=== PATIENT | male | born 1995 | race Caucasian/White ===

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

== ENCOUNTER 2017-07-21 19:57 | Emergency (ER) | payer OTHER ==
[~2017-07-21] VITALS: Ht 180.3 cm; Wt 79.4 kg
[2017-07-21 20:05] VITALS: BP_SYST 121
[2017-07-21] MEDS ORDERED: KETOROLAC TROMETHAMINE 60 MG/2 ML VIAL IM ONE (20:45)
[2017-07-21] MEDS ORDERED: MORPHINE 4 MG/ML INJ. SYRINGE IM ONE (21:30)
[2017-07-21 22:24] VITALS: BP_SYST 127
== END 2017-07-21 22:24 | disposition home or self-care (01) ==
LOC: SED 19:57
DX: S22.32XA Fracture of one rib, left side, initial encounter for closed fracture (principal); X58.XXXA Exposure to other specified factors, initial encounter; Y93.89 Activity, other specified; Y92.89 Other specified places as the place of occurrence of the external cause; Y99.8 Other external cause status
CPT/HCPCS: 73030; 96372; 99284; J1885; J2270

== ENCOUNTER 2019-01-16 06:56 | Emergency (ER) | payer OTHER ==
[~2019-01-16] VITALS: Ht 175.3 cm; Wt 81.6 kg
[2019-01-16 07:00] VITALS: BP_SYST 114
--- NOTE | 2019-01-16 07:00 | NUR ---
BROUGHT BACK TO BED #7 AND TRIAGED. REPORT GIVEN TO CHELLE
[2019-01-16] MEDS ORDERED: KETOROLAC TROMETHAMINE 60 MG/2 ML VIAL IM ONE (07:15)
--- NOTE | 2019-01-16 07:15 | NUR ---
Pt presents to ED c/o L shoulder pain.Pt has decreased ROM w/ history of L arm fx.
--- NOTE | 2019-01-16 07:15 | NUR ---
ER at bedside examining patient.
--- NOTE | 2019-01-16 07:40 | NUR ---
pt medicated tolerated well.
--- NOTE | 2019-01-16 08:40 | NUR ---
Pain remains tolerable.
--- NOTE | 2019-01-16 09:40 | NUR ---
breafast tray ordered for pt.
--- NOTE | 2019-01-16 10:35 | NUR ---
Patient transported to radiology via ambulation, accompanied by MRI staff.
--- NOTE | 2019-01-16 11:48 | NUR ---
DR BERGMAN SPEAKING WITH DR SEPULVEDA RE MRI AT THIS TIME
--- NOTE | 2019-01-16 11:52 | NUR ---
DR BERGMAN SPEAKING WITH PT RE; RESULTS OF MRI
[2019-01-16 12:00] VITALS: BP_SYST 114
--- NOTE | 2019-01-16 12:12 | NUR ---
Patient given written and verbal discharge instructions and verbalizes understanding. ER MD discussed with patient the results and treatment provided. Patient in stable condition. ID arm band removed. Rx of [place] and Motrin given. Patient educated on pain management and to follow up with PMD. Pain Scale 2/10 tolerable for pt . Opportunity for questions provided and answered. Medication side effect fact sheet provided.
== END 2019-01-16 12:12 | disposition home or self-care (01) ==
LOC: SED 06:56
DX: M77.8 Other enthesopathies, not elsewhere classified (principal)
CPT/HCPCS: 73030; 73221; 96372; 99284; J1885; 99283

== ENCOUNTER 2020-03-17 21:11 | Emergency (ER) | payer OTHER, SELFPAY ==
[~2020-03-17] VITALS: Ht 177.8 cm; Wt 86.2 kg
[2020-03-17 21:24] VITALS: BP_SYST 123
--- NOTE | 2020-03-17 21:27 | NUR ---
trasoniad and placed in waiting area.
--- NOTE | 2020-03-17 21:30 | NUR ---
pt arrives from home c/o cough. Denies any SOB,CP and fever. VSS
--- NOTE | 2020-03-17 21:38 | NUR ---
ER at bedside examining patient.
--- NOTE | 2020-03-17 21:40 | NUR ---
COVID SWAB COLLECTED.
[2020-03-17 23:41] VITALS: BP_SYST 120
--- NOTE | 2020-03-17 23:41 | NUR ---
Patient given written and verbal discharge instructions and verbalizes understanding. ER MD discussed with patient the results and treatment provided. Patient in stable condition. ID arm band removed. NO RX given. Patient educated on pain management and to follow up with PMD. Pain Scale 0/10 Opportunity for questions provided and answered.
== END 2020-03-17 23:41 | disposition home or self-care (01) ==
LOC: SED 21:11
DX: Z20.828 Contact with and (suspected) exposure to other viral communicable diseases (principal)
CPT/HCPCS: 36415; 99283